=== PATIENT | male | born 1995 | race Hispanic/Latino ===

== ENCOUNTER 2017-11-14 00:37 | Emergency (ER) | payer SELFPAY ==
--- NOTE | 2017-11-14 01:32 | ED PDOC ---
Lower Extremity Pain/Injury Time Seen by Provider: 11/14/17 01:10 Chief Complaint (Nursing): Lower Extremity Problem/Injury Chief Complaint (Provider): foot pain History Per: Patient History/Exam Limitations: no limitations Onset/Duration Of Symptoms: Hrs Current Symptoms Are (Timing): Still Present Additional Complaint(s): 22 y/o male presents for evaluation of bilateral foot pain x 4 hours. Patient non-domiciled; states he has been doing excessive walking today and that his sneakers are old and do not provide much support. Patient states pain now radiating up to both knees. Denies fall, trauma, numbness/weakness/swelling to lower extremities, limitation of movement. Past Medical History Reviewed: Historical Data, Nursing Documentation, Vital Signs Vital Signs: Last Vital Signs Temp 98.5 F 11/14/17 00:55 Pulse 98 H 11/14/17 00:55 Resp 17 11/14/17 00:55 BP 133/80 11/14/17 00:55 Pulse Ox 96 11/14/17 00:55 - Medical History PMH: Asthma - Surgical History Surgical History: Hernia Repair - Family History Family History: States: No Known Family Hx - Immunization History Hx Tetanus Toxoid Vaccination: Yes Hx Influenza Vaccination: Yes Hx Pneumococcal Vaccination: Yes - Home Medications Home Medications: Ambulatory Orders Medication Instructions Recorded Famotidine [Pepcid] 20 mg PO BID #20 tab 05/23/ Ibuprofen [Motrin] 600 mg PO Q6 PRN #10 tab 05/01/15 - Allergies Allergies/Adverse Reactions: Allergies Allergy/AdvReac Type Severity Reaction Status Date / Time No Known Allergies Allergy Verified 05/01/15 13:13 Review of Systems ROS Statement: Except As Marked, All Systems Reviewed And Found Negative Musculoskeletal: Positive for: Foot Pain Physical Exam - Reviewed Nursing Documentation Reviewed: Yes Vital Signs Reviewed: Yes - Physical Exam Appears: Positive for: Well, Non-toxic, No Acute Distress (sleeping) Skin: Positive for: Normal Color Cardiovascular/Chest: Positive for: Regular Rate, Rhythm Respiratory: Positive for: Normal Breath Sounds Back: Positive for: Normal Inspection Extremity: Positive for: Normal ROM. Negative for: Pedal Edema, Calf Tenderness , Swelling Neurologic/Psych: Positive for: Alert, Oriented. Negative for: Motor/Sensory Deficits - ECG O2 Sat by Pulse Oximetry: 96 - Progress ED Course And Treament: ibuprofen PO Patient given fresh socks. Advised more supportive shoes Ibuprofen/Tylenol PRN pain. Follow up podiatry Return precautions given Disposition - Clinical Impression Clinical Impression: Foot pain, bilateral - Patient ED Disposition Is Patient to be Admitted: No Counseled Patient/Family Regarding: Diagnosis, Need For Followup - Disposition Referrals: Podiatry Clinic [Outside] Disposition: Routine/Home Disposition Time: 03:00 Condition: IMPROVED Instructions: Muscle and Bone Pain (DC)
[2017-11-14 06:38] VITALS: BP 131/67; PULSE 66; RESP 18; TEMP 97.8; O2SAT 98
== END 2017-11-14 07:01 | disposition home or self-care (01) ==
LOC: H.ER 00:37
DX: M79.672 Pain in left foot (principal); M79.671 Pain in right foot

== ENCOUNTER 2017-11-21 03:45 | Emergency (ER) | payer SELFPAY ==
[2017-11-21 04:03] VITALS: BP 126/82; PULSE 58; RESP 18; TEMP 98.3; O2SAT 96
--- NOTE | 2017-11-21 04:23 | ED PDOC ---
HPI: Abdomen Time Seen by Provider: 11/21/17 04:09 Chief Complaint (Nursing): Back Pain Chief Complaint (Provider): abdominal pain History Per: Patient History/Exam Limitations: no limitations Onset/Duration Of Symptoms: Hrs Current Symptoms Are (Timing): Still Present Location Of Pain/Discomfort: RLQ Additional Complaint(s): 22 y/o non-domiciled male presents with right lower abdominal pain x 4 hours. Denies fever, nausea/vomiting, chest pain, shortness of breath, palpitations, changes in bowel movements. Against Medical Advice - AMA Patient Left Against Medical Advice: The patient declines admission to the hospital and wishes to leave the Emergency Department. This action is against my medical advice. This decision was made with informed refusal. The patient was told that admission to the hospital is necessary. Explanation of the reasons why were discussed. The risks of leaving were explained to the patient and include, but are not limited to, worsening of known or currently unknown conditions, permanent disability and from undiagnosed or untreated conditions. The patient has the capacity to make this informed decision and understands my explanation of the current medical problem and risks of leaving. The patient voluntarily accepts these risks and signed an AMA form documenting our conversation. The patient was given the opportunity to ask questions and reconsider. The patient was encouraged to return to the Emergency Department at any time for further care. Past Medical History Reviewed: Historical Data, Nursing Documentation, Vital Signs Vital Signs: Last Vital Signs Temp 98.3 F 11/21/17 03:58 Pulse 58 L 11/21/17 03:58 Resp 18 11/21/17 03:58 BP 126/82 11/21/17 03:58 Pulse Ox 96 11/21/17 05:20 - Medical History PMH: Asthma - Surgical History Surgical History: Hernia Repair - Family History Family History: States: No Known Family Hx - Immunization History Hx Tetanus Toxoid Vaccination: Yes Hx Influenza Vaccination: Yes Hx Pneumococcal Vaccination: Yes - Home Medications Home Medications: Ambulatory Orders Medication Instructions Recorded Famotidine [Pepcid] 20 mg PO BID #20 tab 05/23/14 Ibuprofen [Motrin] 600 mg PO Q6 PRN #10 tab 05/01/15 - Allergies Allergies/Adverse Reactions: Allergies Allergy/AdvReac Type Severity Reaction Status Date / Time No Known Allergies Allergy Verified 11/21/17 03:57 Review of Systems ROS Statement: Except As Marked, All Systems Reviewed And Found Negative Gastrointestinal: Positive for: Abdominal Pain Physical Exam - Reviewed Nursing Documentation Reviewed: Yes Vital Signs Reviewed: Yes - Physical Exam Appears: Positive for: Well, Non-toxic, No Acute Distress Head Exam: Positive for: ATRAUMATIC, NORMAL INSPECTION, NORMOCEPHALIC Skin: Positive for: Normal Color Eye Exam: Positive for: Normal appearance ENT: Positive for: Normal ENT Inspection Cardiovascular/Chest: Positive for: Regular Rate, Rhythm Respiratory: Positive for: Normal Breath Sounds Gastrointestinal/Abdominal: Positive for: Bowel Sounds, Soft, Tenderness (rlq) Back: Positive for: Normal Inspection Extremity: Positive for: Normal ROM Neurologic/Psych: Positive for: Alert, Oriented - ECG O2 Sat by Pulse Oximetry: 96 - Progress ED Course And Treament: Patient refusing blood work/imaging at this time; states he just wants medicine for pain and to sleep. Patient advised he will need to sign out against medical advice, and risks of doing so. Patient AAOx3, demonstrates full competency in making medical decisions. Advised follow up PMD 2-3 days. Return precautions given Disposition - Clinical Impression Clinical Impression: Abdominal pain, Left against medical advice - Patient ED Disposition Is Patient to be Admitted: No Counseled Patient/Family Regarding: Diagnosis, Need For Followup - Disposition Disposition: Against Medical Advice Disposition Time: 05:20 Condition: STABLE Instructions: Acute Abdomen (Belly Pain), Leaving Against Medical Advice
== END 2017-11-21 05:51 | disposition left against medical advice (07) ==
LOC: H.ER 03:45
DX: R10.9 Unspecified abdominal pain (principal)

== ENCOUNTER 2018-03-31 07:16 | Emergency (ER) | payer MEDICAID ==
[2018-03-31 07:24] VITALS: PULSE 69; RESP 17; TEMP 97.4; O2SAT 95
[2018-03-31 07:26] VITALS: BP 134/79
[2018-03-31] MEDS ORDERED: Sodium Chloride 0.9% 1,000 ML IV STA (07:49)
--- NOTE | 2018-03-31 07:57 | ED PDOC ---
HPI: Abdomen Time Seen by Provider: 03/31/18 07:26 Chief Complaint (Nursing): Abdominal Pain Chief Complaint (Provider): Abdominal pain History Per: Patient History/Exam Limitations: no limitations Onset/Duration Of Symptoms: Hrs (2) Current Symptoms Are (Timing): Still Present Location Of Pain/Discomfort: RLQ Quality Of Discomfort: "Pain" Associated Symptoms: Nausea, Vomiting, Diarrhea. denies: Back Pain, Chest Pain, Constipation, Urinary Symptoms Additional History Per: Patient Additional Complaint(s): 23yo male, with past medical history of asthma, comes to ER reporting right lower abdominal pain x 2 days. Patient reports mild nausea, vomiting and diarrhea but denies any blood. He also denies any chest pain, lower back pain, testicular pain, dysuria or hematuria. Patient states he has never had such pain before. Otherwise, no additional medical complaints. PMD: None Past Medical History Reviewed: Historical Data, Nursing Documentation, Vital Signs Vital Signs: Last Vital Signs Temp 97.4 F L 03/31/18 07:22 Pulse 69 03/31/18 07:22 Resp 17 03/31/18 07:22 BP 134/79 03/31/18 07:22 Pulse Ox 95 03/31/18 07:22 - Medical History PMH: Anxiety, Asthma, Depression - Surgical History Surgical History: Hernia Repair - Family History Family History: States: No Known Family Hx - Immunization History Hx Tetanus Toxoid Vaccination: Yes Hx Influenza Vaccination: Yes Hx Pneumococcal Vaccination: Yes - Home Medications Home Medications: Ambulatory Orders Medication Instructions Recorded Famotidine [Pepcid] 20 mg PO BID #20 tab 05/23/14 Ibuprofen [Motrin] 600 mg PO Q6 PRN #10 tab 05/01/15 Ibuprofen [Motrin] 600 mg PO TID 7 Days tab 03/31/18 - Allergies Allergies/Adverse Reactions: Allergies Allergy/AdvReac Type Severity Reaction Status Date / Time No Known Allergies Allergy Verified 11/21/17 03:57 Review of Systems ROS Statement: Except As Marked, All Systems Reviewed And Found Negative Constitutional: Negative for: Fever, Chills Cardiovascular: Negative for: Chest Pain Gastrointestinal: Positive for: Nausea, Vomiting, Abdominal Pain, Diarrhea Genitourinary Male: Negative for: Dysuria, Frequency, Hematuria, Scrotal Pain Musculoskeletal: Negative for: Back Pain Physical Exam - Reviewed Nursing Documentation Reviewed: Yes Vital Signs Reviewed: Yes - Physical Exam Appears: Positive for: Non-toxic, No Acute Distress Head Exam: Positive for: ATRAUMATIC, NORMAL INSPECTION, NORMOCEPHALIC Skin: Positive for: Normal Color, Warm Eye Exam: Positive for: Normal appearance, EOMI, PERRL Neck: Positive for: Normal, Supple Cardiovascular/Chest: Positive for: Regular Rate, Rhythm Respiratory: Positive for: Normal Breath Sounds Gastrointestinal/Abdominal: Positive for: Soft, Tenderness (mild right lower quadrant tenderness). Negative for: Mass, Guarding, Rebound Back: Positive for: Normal Inspection. Negative for: L CVA Tenderness, R CVA Tenderness, Vertebral Tenderness Extremity: Positive for: Normal ROM. Negative for: Pedal Edema Neurologic/Psych: Positive for: Alert, telecommunications support II-XII, Oriented. Negative for: Motor/Sensory Deficits - Laboratory Results Result Diagrams: 03/31/18 08:05 03/31/18 08:05 Interpretation Of Abn Labs: no acute - ECG O2 Sat by Pulse Oximetry: 95 (RA) Pulse Ox Interpretation: Normal - CT Scan/US ct Other Rad Studies (CT/US): Read By Radiologist Other Rad Interpretation: no acute US Other Rad Studies (CT/US): Radiology Report Reviewed Other Rad Interpretation: no acute - Progress ED Course And Treament: 1131: Stable. AAOx3. Sleeping with no distress. Tolerated po during ER stay. Fu with pcp. Medical Decision Making Medical Decision Making: Impression: Abdominal pain x 2 hours Plan: * CT Abdomen/Pelvis w/ IV Contrast * Labs * Zofran 4mg IV * Toradol 15mg IV * IV Fluids 09:55 CT Abdomen/Pelvis FINDINGS: LOWER THORAX: Heart size mildly enlarged. Lung bases clear. Minor changes of bilateral gynecomastia. LIVER: Liver is upper limits of normal measuring over 18 cm in CC dimension.. Mild fatty hepatic infiltration no obvious hepatic mass collection or calcification. Portal and splenic veins are opacified. GALLBLADDER AND BILE DUCTS: Gallbladder is incompletely distended with secondary wall thickening. No obvious intraluminal gallbladder calculi... PANCREAS: Unremarkable. No mass. No ductal dilatation. SPLEEN: Unremarkable. No splenomegaly. ADRENALS: No adrenal lesions. KIDNEYS AND URETERS: Unremarkable. No stone or hydronephrosis. BLADDER: Urinary bladder is physiologically distended. No evidence of intraluminal urinary bladder calculi. REPRODUCTIVE: Unremarkable. APPENDIX: Normal appendix BOWEL: Evaluation of the bowel slightly limited due to the lack of oral contrast material. Stomach is incompletely distended. Visualized loops of small bowel exhibit normal contour and caliber. No evidence of acute mechanical small bowel obstruction. Stool and air seen throughout the large bowel. PERITONEUM: Unremarkable. No fluid collection. No free air. Small bilateral fat containing inguinal hernias left larger than right LYMPH NODES: Unremarkable. No enlarged lymph nodes. VASCULATURE: Unremarkable. No evidence aortic aorta atherosclerotic calcification and mural plaque. No evidence of aneurysm. BONES: No fracture or destructive lesion. OTHER FINDINGS: None. IMPRESSION: No evidence of acute appendicitis. Borderline hepatomegaly with mild fatty infiltration. Contracted gallbladder with secondary wall thickening. Based on CT findings, US Galbladder ordered. Scribe Attestation: Documented by Uyen Bernal, acting as a scribe for Piotr Dominguez MD. Provider Scribe Attestation: All medical record entries made by the Scribe were at my direction and personally dictated by me. I have reviewed the chart and agree that the record accurately reflects my personal performance of the history, physical exam, medical decision making, and the department course for this patient. I have also personally directed, reviewed, and agree with the discharge instructions and disposition. Disposition - Clinical Impression Clinical Impression: Abdominal discomfort Counseled Patient/Family Regarding: Studies Performed, Diagnosis, Need For Followup, Rx Given - Disposition Referrals: [facility] [Outside] - 04/02/18 Disposition: Routine/Home Disposition Time: 11:32 Condition: STABLE Additional Instructions: Return if not better in 3 days. Prescriptions: Ibuprofen [Motrin] 600 mg PO TID 7 Days tab Instructions: Stomach Ache and Stomach Upset
[2018-03-31 08:15] LABS: BASO # 0.1 K/uL (0.0-0.2); BASO % 0.8 % (0.0-2.0); EOS # 0.3 K/uL (0.0-0.7); EOS % 3.5 % (0.0-4.0); HEMOGLOBIN 14.7 g/dL (12.0-18.0); LYMPH % 35.6 % (20.0-40.0); MEAN CELL VOLUME 91.4 fl (80.0-94.0); MEAN CORPUSCULAR HEMOGLOBIN 31.7 pg (27.0-31.0); MEAN CORPUSCULAR HGB CONC 34.7 g/dL (33.0-37.0); MEAN PLATELET VOLUME 8.5 fl (7.2-11.7); MONO # 0.6 K/uL (0.0-0.8); MONO % 7.2 % (0.0-10.0); NEUT # 4.4 K/uL (1.8-7.0); NEUT % 52.9 % (50.0-75.0); NRBC % 0.1 % (0.0-0.0); RBC 4.63 Mil/uL (4.40-5.90); RED CELL DISTRIBUTION WIDTH 13.5 % (11.5-14.5); WHITE BLOOD COUNT 8.4 K/uL (4.8-10.8)
[2018-03-31 08:27] LABS: ALB/GLOB RATIO 1.4 (1.0-2.1); ALT/SGPT 52 U/L (21-72); AST/SGOT 24 U/L (17-59); BLOOD UREA NITROGEN 13 mg/dl (9-20); CALCIUM 9.1 mg/dL (8.4-10.2); GFR NON-AFRICAN AMERICAN > 60
[2018-03-31] MEDS ORDERED: Sodium Chloride 0.9% 50 ML IV ONE (08:36)
[2018-03-31] MEDS ORDERED: Iohexol 300 100 ML IJ ONE (08:36)
--- NOTE | 2018-03-31 09:46 | CT ---
Date of service: 03/31/2018 PROCEDURE: CT Abdomen and Pelvis. HISTORY: Pain. Evaluate for appendicitis COMPARISON: None. TECHNIQUE: Contiguous axial images of the abdomen and pelvis performed following intravenous injection of approximately 95 cc Omnipaque 300. Coronal and Sagittal reformats generated. Radiation dose: Total exam DLP = 866.23 mGy-cm. This CT exam was performed using one or more of the following dose reduction techniques: Automated exposure control, adjustment of the mA and/or kV according to patient size, and/or use of iterative reconstruction technique.. FINDINGS: LOWER THORAX: Heart size mildly enlarged. Lung bases clear. Minor changes of bilateral gynecomastia. LIVER: Liver is upper limits of normal measuring over 18 cm in CC dimension.. Mild fatty hepatic infiltration no obvious hepatic mass collection or calcification. Portal and splenic veins are opacified. GALLBLADDER AND BILE DUCTS: Gallbladder is incompletely distended with secondary wall thickening. No obvious intraluminal gallbladder calculi... PANCREAS: Unremarkable. No mass. No ductal dilatation. SPLEEN: Unremarkable. No splenomegaly. ADRENALS: No adrenal lesions. KIDNEYS AND URETERS: Unremarkable. No stone or hydronephrosis. BLADDER: Urinary bladder is physiologically distended. No evidence of intraluminal urinary bladder calculi. REPRODUCTIVE: Unremarkable. APPENDIX: Normal appendix BOWEL: Evaluation of the bowel slightly limited due to the lack of oral contrast material. Stomach is incompletely distended. Visualized loops of small bowel exhibit normal contour and caliber. No evidence of acute mechanical small bowel obstruction. Stool and air seen throughout the large bowel. PERITONEUM: Unremarkable. No fluid collection. No free air. Small bilateral fat containing inguinal hernias left larger than right LYMPH NODES: Unremarkable. No enlarged lymph nodes. VASCULATURE: Unremarkable. No evidence aortic aorta atherosclerotic calcification and mural plaque. No evidence of aneurysm. BONES: No fracture or destructive lesion. OTHER FINDINGS: None. IMPRESSION: No evidence of acute appendicitis. Borderline hepatomegaly with mild fatty infiltration. Contracted gallbladder with secondary wall thickening.
--- NOTE | 2018-03-31 13:48 | US ---
Date of service: 03/31/2018 HISTORY: gall bladder wall thickening COMPARISON: None. TECHNIQUE: Sonographic evaluation of the right upper quadrant of the abdomen. FINDINGS: LIVER: Measures 17.4 cm in length. Normal echogenicity of the liver parenchyma. No mass. No intrahepatic bile duct dilatation. GALLBLADDER: Gallbladder wall is on thickened likely due to contraction. No evidence of intraluminal gallbladder calculi. No pericholecystic fluid collections or sonographic Canales sign COMMON BILE DUCT: Measures 3.4 mm. No stones. No dilatation. PANCREAS: Unremarkable as visualized. No mass. No ductal dilatation. RIGHT KIDNEY: Measures 11.5 x 5.5 x 4.7 cm in length. Normal echogenicity. No calculus, mass, or hydronephrosis. AORTA: No aneurysmal dilatation. IVC: Unremarkable. OTHER FINDINGS: None . IMPRESSION: Contracted gallbladder likely due to nonfasting state. No evidence of intraluminal gallbladder calculi, pericholecystic fluid collections or sonographic Canales sign
== END 2018-03-31 11:58 | disposition home or self-care (01) ==
LOC: H.ER 07:16 → SUPCPDRO 07:16 → H.ER 11:58
DX: R10.9 Unspecified abdominal pain (principal); R11.2 Nausea with vomiting, unspecified; R19.7 Diarrhea, unspecified
CPT/HCPCS: 74177; 76705; 80053; 85025; 96374; 99284; G0480; J1885; J2405; J7030; Q9967

== ENCOUNTER 2018-06-21 03:10 | Emergency (ER) | payer MEDICAID ==
--- NOTE | 2018-06-21 03:29 | ED PDOC ---
HPI: General Adult Time Seen by Provider: 06/21/18 03:18 Chief Complaint (Nursing): Alcohol Ingestion Chief Complaint (Provider): none History Per: Patient History/Exam Limitations: no limitations Additional Complaint(s): 23 y/o male brought in by EMS for evaluation of possible alcohol intoxication. Patient awake upon arrival, states he is homeless and did not get into the [facility] tonight so he was sleeping outside and they woke him up and brought him here. Patient denies alcohol/drug use or acute physical complaints. Past Medical History Reviewed: Historical Data, Nursing Documentation, Vital Signs Vital Signs: Last Vital Signs Temp 97.5 F L 06/21/18 03:20 Pulse 96 H 06/21/18 03:20 Resp 16 06/21/18 03:20 BP 116/66 06/21/18 03:20 Pulse Ox 98 06/21/18 03:20 - Medical History PMH: Anxiety, Asthma, Depression - Surgical History Surgical History: Hernia Repair - Family History Family History: States: No Known Family Hx - Immunization History Hx Tetanus Toxoid Vaccination: Yes Hx Influenza Vaccination: Yes Hx Pneumococcal Vaccination: Yes - Home Medications Home Medications: Ambulatory Orders Medication Instructions Recorded Famotidine [Pepcid] 20 mg PO BID #20 tab 05/23/14 Ibuprofen [Motrin] 600 mg PO Q6 PRN #10 tab 05/01/15 Ibuprofen [Motrin] 600 mg PO TID 7 Days tab 03/31/18 - Allergies Allergies/Adverse Reactions: Allergies Allergy/AdvReac Type Severity Reaction Status Date / Time No Known Allergies Allergy Verified 06/21/18 03:22 Review of Systems ROS Statement: Except As Marked, All Systems Reviewed And Found Negative Physical Exam - Reviewed Nursing Documentation Reviewed: Yes Vital Signs Reviewed: Yes - Physical Exam Appears: Positive for: Well, Non-toxic, No Acute Distress Head Exam: Positive for: ATRAUMATIC, NORMAL INSPECTION, NORMOCEPHALIC Skin: Positive for: Normal Color Eye Exam: Positive for: Normal appearance ENT: Positive for: Normal ENT Inspection Cardiovascular/Chest: Positive for: Regular Rate, Rhythm Respiratory: Positive for: Normal Breath Sounds Gastrointestinal/Abdominal: Positive for: Normal Exam Back: Positive for: Normal Inspection Extremity: Positive for: Normal ROM Neurologic/Psych: Positive for: Alert, Oriented (x3) - ECG O2 Sat by Pulse Oximetry: 98 - Progress ED Course And Treament: Patient requires no further intervention in the ED and is stable for discharge at this time Disposition - Clinical Impression Clinical Impression: Malingering - Patient ED Disposition Is Patient to be Admitted: No - Disposition Disposition Time: 04:59 Condition: STABLE
[2018-06-21 06:13] VITALS: BP 123/77; PULSE 82; RESP 18; TEMP 98.4; O2SAT 97
== END 2018-06-21 06:26 | disposition home or self-care (01) ==
LOC: H.ER 03:10
DX: Z76.5 Malingerer [conscious simulation] (principal); Z86.59 Personal history of other mental and behavioral disorders; J45.909 Unspecified asthma, uncomplicated; Z59.0 Homelessness